=== PATIENT | female | born 1990 | race Caucasian/White ===

== ENCOUNTER 2017-06-30 15:48 | Inpatient (IN) | payer SELFPAY ==
[2017-06-30] MEDS ORDERED: BRETHINE SUB-Q PRN (16:33)
[2017-06-30] MEDS ORDERED: BRETHINE IVP PRN (16:33)
[2017-06-30] MEDS ORDERED: MINERAL OIL PO PRN (16:33)
[2017-06-30] MEDS ORDERED: ePHEDrine SULFATE IV PRN (16:33)
[2017-06-30] MEDS ORDERED: ZOFRAN IV PRN ×2 (16:33→17:11)
[2017-06-30] MEDS ORDERED: SUBLIMAZE IV PRN (16:33)
[2017-06-30] MEDS ORDERED: STADOL IV PRN (16:33)
[2017-06-30] MEDS ORDERED: XYLOCAINE 2% INFILTRATI ONE (16:33)
[2017-06-30] MEDS ORDERED: NARCAN 0.4 MG/1 ML IV PRN (16:33)
--- NOTE | 2017-06-30 16:39 | History and Physical Report ---
History of Present Illness Date of examination: 06/30/17 Date of admission: 06/30/2017 Chief complaint: Intense Labor Pains History of present illness: Early entry to care at [facility], course complicated by Gestational Thrombocytopenia, and a abnormal 1hour GTT followed by a normal 3 hour GTT. Past History Past Medical History: no pertinent history Past Surgical History: no surgical history Family/Genetic History: none Social history: no significant social history, - Obstetrical History Expected Date of Delivery: 06/26/17 Actual Gestation: 40 Week(s) 4 Day(s) : 4 Para: 3 Hx # Term Pregnancies: 3 Number of Living Children: 3 #1 Infant Gender: Female year: 2,008 Birthweight: 2.722 kg Method of Delivery: Vaginal Gestational age at delivery: 40 Complications: none #2 Gender: Male year: 2,[birth year] Birthweight: 3.175 kg Method of Delivery: Vaginal Gestational age at delivery: 40 #3 Gender: Female year: 2,015 Birthweight: 3.175 kg Method of Delivery: Vaginal Gestational age at delivery: 40 Review of Systems All systems: negative - Physical Exam Breasts: Positive: normal Cardiovascular: Regular rate Lungs: Positive: Clear to auscultation Abdomen: Positive: normal appearance, soft, normal bowel sounds Genitourinary (Female): Positive: normal external genitalia, normal perenium Vagina: Positive: normal moisture Uterus: Positive: enlarged - Obstetrical FHR: category 2 Uterine Contraction Monitor Mode: External Cervical Dilatation: 9 (Moderate amount of clear fluid upon AROM at 1628) Cervical Effacement Percentage: 100 station: 0 Uterine Contraction Pattern: Regular Uterine Tone Measurement Phase: Resting Uterine Contraction Intensity: Moderate Results All other labs normal. Assessment and Plan A: IUP @40 4/7 Weeks Category II Tracing Active Labor GBS Negative P: Admit to L&D per Routine Orders AROM
[2017-06-30 16:43] LABS: Hematocrit 35.8 % (30.3-42.9); Mean Corpuscular HGB Conc 34 % (30-34); Mean Corpuscular Hemoglobin 29 pg (28-32); Mean Corpuscular Volume 87 fl (79-97); Platelet Count 141 K/mm3 (140-440); Red Cell Distribution Width 13.5 % (13.2-15.2); White Blood Count 11.2 K/mm3 (4.5-11.0)
[2017-06-30] MEDS ORDERED: PITOCin/NS 30 UNIT/500ML 30 UNITS/500 ML BAG IV SCH (17:00)
[2017-06-30] MEDS ORDERED: LACTATED RINGERS 1,000 ML IV SCH (17:00)
[2017-06-30] MEDS ORDERED: PITOCin/NS 20 UNIT/1000ML DRIP 20 UNITS/1,000 ML BAG IV SCH (17:00)
[2017-06-30] MEDS ORDERED: MILK OF MAGNESIA PO PRN (17:11)
[2017-06-30] MEDS ORDERED: LANSINOH TP PRN (17:11)
[2017-06-30] MEDS ORDERED: BENADRYL PO PRN (17:11)
[2017-06-30] MEDS ORDERED: PHENERGAN PR PRN (17:11)
[2017-06-30] MEDS ORDERED: DULCOLAX PR PRN (17:11)
[2017-06-30] MEDS ORDERED: PHENERGAN PO PRN (17:11)
[2017-06-30] MEDS ORDERED: NORCO 5/325 PO PRN (17:11)
[2017-06-30] MEDS ORDERED: TUCKS PAD TP PRN (17:11)
--- NOTE | 2017-06-30 17:19 | Procedure Note ---
OB Delivery Note - Delivery Date of Delivery: 06/30/17 (1650) Surgeon: DENTON CASAS Estimated blood loss: other (250) - Vaginal Delivery presentation: vertex Delivery position: OA Intrapartum events: none Delivery induction: none Delivery augmentation: rupture of membranes Delivery monitor: external FHT, external uterine Route of delivery: Delivery placenta: spontaneous Delivery cord: 3 umbilical vessels Episiotomy: none Delivery laceration: 1st degree Delivery repair: vicryl Anesthesia: local Delivery comments: of a live 8'6 male infant over a 1st degree vaginal laceration without pain control with Apgars of 8 and 9 at 1650 on 06/30/2017. directly to maternal abd/chest, skin to skin contact. Vaginal laceration repaired with 2-[address]-1 under local 2% Lidocaine. Spontaneous delivery of placenta complete and intact with [place] side presenting at 1702. Fundus is firm and midline located 4 below the U. Lochia is scant. Delayed cord clamping and cutting; cord cut by father of the baby. Cord blood collected. Placenta discarded. - Infant A at 1 minute: 8 at 5 minutes: 9 Infant Gender: Male (8'6)
[2017-06-30] MEDS ORDERED: SODIUM CHLORIDE FLUSH SYRINGE 10 ML IV NR (18:00)
[2017-06-30] MEDS: MOTRIN PO SCH (18:18)
[2017-06-30] MEDS ORDERED: PITOCin/NS 20 UNIT/1000ML DRIP 20,000 MILLIUNITS/1,000 ML BAG IV ONE (19:06)
[2017-07-01] MEDS: MOTRIN PO SCH ×3 (00:21→12:40)
[2017-07-01 06:25] LABS: Hematocrit 29.4 % (30.3-42.9); Hemoglobin 10.3 gm/dl (10.1-14.3)
--- NOTE | 2017-07-01 09:18 | Progress Note ---
Assessment and Plan A: PPD # 1 -stable P; Discharge home today Subjective - Subjective Date of service: 07/01/17 Patient reports: appetite normal [place]: doing well Objective - Vital Signs Latest vital signs: Vital Signs Temp Pulse Resp BP BP 07/01/17 06:01 16 07/01/17 05:55 97.9 F 76 16 100/60 07/01/17 01:21 16 07/01/17 00:21 16 07/01/17 00:00 98.5 F 75 18 99/60 06/30/17 19:47 98 F 80 18 98/51 06/30/17 19:18 16 06/30/17 18:31 98.8 F 16 06/30/17 18:17 82 96/63 06/30/17 18:02 86 93/60 06/30/17 17:47 94 H 97/63 06/30/17 17:33 83 107/55 06/30/17 17:32 153 H 75/44 06/30/17 17:17 83 118/58 06/30/17 17:08 98.6 F 18 06/30/17 16:20 97.7 F 20 Intake and Output 06/30/17 07/01/17 07/01/17 22:59 06:59 14:59 Intake Total 240 120 Output Total 500 1100 Balance -260 -980 Intake: Intake, Free Water 240 120 Output: Urine 500 1100 Void 500 1100 Other: Total, Output Amount 500 600 # Voids Void 1 1 Weight 161 lb Estimated Blood Loss 250 - Exam Breasts: Present: deferred Cardiovascular: Present: Regular rate Lungs: Present: Clear to auscultation Abdomen: Present: soft Vulva: both: normal Uterus: Present: fundal height below umbilicus Deep Tendon Reflex Grade: Normal +2 - Labs Labs: Abnormal lab results 06/30/17 07/01/17 Range/Units 16:20 05:36 WBC 11.2 H (4.5-11.0) K/mm3 Hct 29.4 L D (30.3-42.9) %
--- NOTE | 2017-07-01 09:21 | Discharge Summary ---
Providers - Providers Date of Admission: 06/30/17 15:49 Date of discharge: 07/01/17 Attending physician: JHOANA MIRANDA MD Primary care physician: JHOANA MIRANDA MD Hospitalization Reason for admission: active labor Delivery: Episiotomy: none Laceration: none complications: none Discharge diagnosis: IUP at term delivered [place] baby: male Condition at discharge: Good Disposition: DC-01 TO HOME OR SELFCARE Plan - Provider Discharge Summary Activity: routine, no sex for 6 weeks, no strenuous exercise Diet: routine Instructions: routine Additional instructions: [] Smoking cessation referral if applicable(refer to patient education folder for contact #) [] Refer to [facility] Booklet Call your doctor immediately for: * Fever > 100.5 * Heavy vaginal bleeding ( >1 pad per hour) * Severe persistent headache * Shortness of breath * Reddened, hot, painful area to leg or breast * Drainage or odor from incision. * Keep incision clean and dry at all times and follow doctor's instructions regarding bathing/showering - Follow up plan Follow up: JHOANA MIRANDA MD [Primary Care Provider] - 6 Weeks
[2017-07-01 17:17] VITALS: BP 95/55
== END 2017-07-01 20:00 | disposition home or self-care (01) | DRG 775 ==
LOC: TRG 15:48 → LD 15:49 → OB 19:43
PROVIDERS: ADMIT Obstetrics & Gynecology; ATTEND Obstetrics & Gynecology
PROC: 0HQ9XZZ Repair Perineum Skin, External Approach (ICD-10-PCS; principal; 2017-06-30)
PROC: 10E0XZZ Delivery of Products of Conception, External Approach (ICD-10-PCS; 2017-06-30)
DX: O76 Abnormality in fetal heart rate and rhythm complicating labor and delivery (principal); O70.0 First degree perineal laceration during delivery; Z3A.40 40 weeks gestation of pregnancy; Z37.0 Single live birth
CPT/HCPCS: 36415; 85014; 85018; 85027; 86592; 86850; 86900; 86901; 99211; G0463; J0595; J2590